=== PATIENT | male | born 1955 | race Caucasian/White ===

== ENCOUNTER 2025-01-10 05:44 | Inpatient (IN) | payer MEDICARE, OTHER, SELFPAY ==
--- NOTE | 2024-12-23 12:39 | CM ---
Demographics: confirmed
Living situation: lives alone, friend and nephew will assist.
Support Person Post Operatively: friend and nephew
History of
VN: no
SNF: no
Outpatient: Encouraged patient to make outpatient appointments at [facility] (formerly [facility]).
Has patient purchased required equipment: walker from [employer]
PCP: active
Pharmacy: [facility]
Post Operative Discharge Plan: Outpatient PT/
--- NOTE | 2024-12-24 15:06 | CM ---
Addendum entered by Mali Grimes RN 12/27/24 14:30:
CM met with patient in PAT. Patient stated he would not have a ride for outpatient PT. CM referred him to [facility] for two week of outpatient therapy.
Original Note:
CM received call from patient requesting SDS due to no ride available post op day 1 and day of discharge. MANNY sent message to Valorie at [facility] to discuss with surgeon.
[2024-12-27 11:44] LABS: Hematocrit 40.2 % (39.0-52.0); Hemoglobin 13.4 g/dL (13.0-18.0); Mean Corp Hgb Conc. 33.3 g/dL (33.0-37.0); Mean Corpuscular Volume 89.3 fL (80.0-94.0); Platelet Count 253 10^3/uL (130-400); Red Cell Dist. Width 12.5 % (11.5-14.5)
[2024-12-27 12:05] LABS: ALT (SGPT) 21 U/L (0-50); AST (SGOT) 19 U/L (17-59); Albumin 4.1 g/dl (3.5-5.0); Alkaline Phosphatase 86 U/L (38-126); Blood Urea Nitrogen 19 mg/dl (9-20); Calcium 9.4 mg/dl (8.4-10.2); Carbon Dioxide 28 mmol/L (22-30); Chloride 105 mmol/L (98-107); Glucose 119 mg/dl (70-99); Potassium 4.5 mmol/L (3.5-5.1); Sodium 136 mmol/L (135-145); Total Protein 6.5 g/dl (6.3-8.2); eGFR > 60.00
[2024-12-27 12:50] LABS: Glycohemoglobin (HgbA1c) 5.8 % (4.0-5.9)
[2024-12-27 14:11] VITALS: BMI 23.8
--- NOTE | 2024-12-27 14:42 | VNURNOTE ---
Addendum entered by Jennifer Bragg RN 01/10/25 13:58:
Home Health Liaison met with patient, nephew and family at bedside to discuss [facility] nurse/therapy, visits, schedule and homebound status. Patient is agreeable and understands that visits at home will be 2-3 x per week to assess and teach medical
management.
Patient is aware that [facility] will contact them for start of care within 1-2 days after discharge from .
[facility] referral accepted in [facility].
Original Note:
Rec'ed update from surg coordinator that pt will need PT/OT post op. Chart reviewed. Per MT pt will be admitted morning of surgery. [facility] referral placed in [facility].
[2024-12-27 18:37] VITALS: BMI 23.8
[2025-01-10] VITALS (17 sets, daily range): BP systolic 100–156; BP diastolic 58–93; PULSE 74–75; O2SAT 96–98; BMI 23.8
[2025-01-10] MEDS: NORMOSOL-R/PLASMALYTE-A 1000 IV (06:36)
[2025-01-10] MEDS: CELEBREX 200 MG PO (06:48)
[2025-01-10] MEDS: TYLENOL 650 MG PO ×3 (06:48→19:45)
--- NOTE | 2025-01-10 09:00 | W.PN.UPDATE ---
Update Note
Progress Note Update
R knee OA s/p R TKA w/ Dr Mittal 01/10/25
DVT prophylaxis - ASA, b/l venous foot pumps
R tibia osteomyelitis, >40 years ago, status post debridement of R tibia and IV Penicillin course - would benefit from prophylactic abx upon d/c
- Probiotic use highly encouraged while on abx
HTN - + parameters - monitor BP
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
Lumbar DDD with radiculopathy - add low dose Gabapentin HS
BPH with nocturia - monitor voids
- Continue Finasteride
- Add Flomax during admission to aid in urination
- Bladder scan/straight cath prn
Venous insufficiency of RLE
Migraines.
Right-sided ischial pain
Eczema
Insomnia
Pt would benefit from home PT/VN services initially upon d/c
[2025-01-10] MEDS: ROXICODONE 5 MG PO (10:30)
[2025-01-10] MEDS: DILAUDID 0.25 MG IV (10:33)
[2025-01-10] MEDS: TYLENOL PO (12:00)
--- NOTE | 2025-01-10 12:00 | PTCARENOTE ---
Pt received from the PACU via bed. Transport was w/o incident. Pt is AAOx3, HRR, lungs are clear, resp. are easy. VSS, Pt is afebrile. Pt's right knee with Mepilex dressing C/D/I, no drainage noted at this time. Pt reports full return of sensation
to b/l legs and is able to move and wiggle toes w/o difficulty. Pt reports pain as a sl discomfort at this time and declines any additional pain meds at present. Pt instructed on plan of care, Pt verbalizes understanding of instructions. Call ramirez
is within reach.
[2025-01-10] MEDS: ANCEF 5 IV ×2 (14:48→21:18)
[2025-01-10] MEDS: FLOMAX 0.4 MG PO (14:48)
[2025-01-10] MEDS: ASPIRIN 325 MG PO (18:45)
[2025-01-10] MEDS: COLACE 100 MG PO (19:44)
[2025-01-10] MEDS: DECADRON 4 MG PO (19:45)
[2025-01-10] MEDS: FLORASTOR 250 MG PO (19:45)
[2025-01-10] MEDS: SENOKOT 17.2 MG PO (19:45)
[2025-01-10] MEDS: BACTROBAN 2% OINTMENT 1 APPLIC NASAL (19:46)
[2025-01-10] MEDS: NEURONTIN 300 MG PO (21:18)
[2025-01-10] MEDS: ROXICODONE 10 MG PO (21:18)
[2025-01-10] MEDS: PROSCAR 5 MG PO (21:19)
[2025-01-10] MEDS: PEPCID 20 MG PO (21:20)
[2025-01-11] VITALS (7 sets, daily range): BP systolic 95–141; BP diastolic 55–77; BMI 23.7
[2025-01-11] MEDS: TYLENOL PO ×2 (01:30→23:56)
[2025-01-11] MEDS: TYLENOL 650 MG PO ×5 (04:15→20:10)
[2025-01-11] MEDS: ROXICODONE 5 MG PO ×2 (05:20→09:49)
[2025-01-11] MEDS: ASPIRIN 325 MG PO (09:47)
[2025-01-11] MEDS: FLORASTOR 250 MG PO ×2 (09:48→20:10)
[2025-01-11] MEDS: DECADRON 4 MG PO ×2 (09:49→20:10)
[2025-01-11] MEDS: SENOKOT 17.2 MG PO ×2 (09:49→20:10)
[2025-01-11] MEDS: COLACE 100 MG PO ×2 (09:49→20:10)
[2025-01-11] MEDS: FLOMAX 0.4 MG PO (09:49)
[2025-01-11] MEDS: BACTROBAN 2% OINTMENT 1 APPLIC NASAL ×2 (09:50→20:10)
--- NOTE | 2025-01-11 11:28 | W.PN.ORTHO ---
Addendum entered and electronically signed by Trent Mittal MD 01/11/25 12:02:
Patient seen and examined. Complains of pain but otherwise doing well. Reassured him that he is doing well. PT felt that he would benefit from another day as an inpatient. Plan for discharge home tomorrow with home VN and PT.
Original Note:
Today's Communication / Plan
-
POD #1 s/p right TKA with Dr. Mittal
-PT/OT as able.
-WBAT with walker.
-Pain control with oxycodone and tylenol prn.
-Aspirin 325 mg po daily for dvt prophylaxis.
-PT has expressed concern with patient's ability to do stairs. Recommend keeping him for additional session of PT tomorrow.
Assessment
.
Distal Motor Intact: Yes
Dressing:
Clean, dry and intact.
Assessment:
POD #1 s/p right TKA with Dr. Mittal
-PT/OT as able.
-WBAT with walker.
-Pain control with oxycodone and tylenol prn.
-Aspirin 325 mg po daily for dvt prophylaxis.
-PT has expressed concern with patient's ability to do stairs. Recommend keeping him for additional session of PT tomorrow.
Plan
.
Surgery / Date: 01/10/25 Right TKA - Dr. Mittal
DVT Prophylaxis: Aspirin
Activity:
Out of bed.
PT/OT
Discharge Plan: Home w/ VN
Subjective
.
.:
Patient was doing PT upon my arrival. Had been reporting pain as he attempted to do steps. Had an episode where the knee gave out, but was able to be redirected to a chair and then subsequently walk back to his chair. There were some concerns
with his ability to be d/c home today due to 5 steps leading to his apartment. Has been taking Oxycodone for pain relief, but continues to have more pain than he was anticipating.
Vital Signs and Labs
.
Vital Signs and Labs:
Lab Results
12/27/24 10:53
12/27/24 10:53
Temp Pulse Resp BP Pulse Ox
97.7 F 61 18 124/75 99
01/11/25 07:35 01/11/25 07:35 01/11/25 07:35 01/11/25 07:35 01/11/25 07:35
Non-invasive Hgb result: 13.3
Physical Exam
-
right knee: dressing is c/d/i. No drainage. ROM 0-80 degrees. Calf soft and non tender to palpation. N/v intact distally. Antalgic gait, using rolling walker to assist ambulation.
[2025-01-11] MEDS: ROXICODONE 10 MG PO ×2 (14:48→21:23)
[2025-01-11] MEDS: PROSCAR 5 MG PO (21:23)
[2025-01-11] MEDS: PEPCID 20 MG PO (21:23)
[2025-01-11] MEDS: NEURONTIN 300 MG PO (21:23)
[2025-01-12] MEDS: TYLENOL 650 MG PO ×2 (03:22→07:56)
[2025-01-12 06:00] VITALS: BMI 23.4
[2025-01-12 07:56] VITALS: BP 129/68
[2025-01-12] MEDS: COLACE 100 MG PO (07:56)
[2025-01-12] MEDS: FLORASTOR 250 MG PO (07:56)
[2025-01-12] MEDS: ASPIRIN 325 MG PO (07:56)
[2025-01-12] MEDS: FLOMAX 0.4 MG PO (07:56)
[2025-01-12] MEDS: ROXICODONE 10 MG PO (07:56)
[2025-01-12] MEDS: SENOKOT 17.2 MG PO (07:56)
[2025-01-12] MEDS: DECADRON 4 MG PO (07:56)
[2025-01-12] MEDS: MILK OF MAGNESIA 30 ML PO (08:02)
[2025-01-12 09:58] VITALS: BP 150/79; PULSE 75; O2SAT 96
--- NOTE | 2025-01-12 11:17 | W.PN.ORTHO ---
Today's Communication / Plan
-
POD #2 s/p right TKA with Dr. Mittal
-PT/OT as able.
-WBAT with walker.
-Pain control with oxycodone and tylenol prn.
-Aspirin 325 mg po daily for dvt prophylaxis.
-PT went much better this morning and patient feels more confident.
-Stable for d/c home today with VN and home PT.
Assessment
.
Distal Motor Intact: Yes
Dressing:
Clean, dry and intact.
Assessment:
POD #2 s/p right TKA with Dr. Mittal
-PT/OT as able.
-WBAT with walker.
-Pain control with oxycodone and tylenol prn.
-Aspirin 325 mg po daily for dvt prophylaxis.
-PT went much better this morning and patient feels more confident.
-Stable for d/c home today with VN and home PT.
Plan
.
Surgery / Date: 01/10/25 Right TKA - Dr. Mittal
DVT Prophylaxis: Aspirin
Activity:
Out of bed.
PT/OT
Discharge Plan: Home w/ VN
Subjective
.
.:
Patient resting comfortably in bed. Did much better on stairs with PT this morning and is confident with being discharged home today.
Vital Signs and Labs
.
Vital Signs and Labs:
Lab Results
12/27/24 10:53
12/27/24 10:53
Temp Pulse Resp BP Pulse Ox
98.2 F 80 16 129/68 98
01/12/25 07:56 01/12/25 07:56 01/12/25 07:56 01/12/25 07:56 01/12/25 10:25
Non-invasive Hgb result: 13.3
Physical Exam
-
Right knee: dressing is c/d/i, no drainage. Moderate diffuse swelling. ROM 0-80 degrees. Calf soft and non tender to palpation. N/v intact distally.
--- NOTE | 2025-01-12 11:22 | W.DS.TRANS ---
DC Summary - Financial Counselor
-
Discharge Instructions:
Sleep Apnea Risk Intermediate
Discharge Diagnosis/Procedures R knee OA s/p R TKA w/ Dr Mittal 01/10/25
Diet Regular
Additional Diets Adequate hydration, minimize opioids, and wear
TEDs stockings to prevent low blood pressure/
dizziness.
Activity As tolerated,With Walker
Driving Restrictions Not until seen by your Dr
Bathing Restrictions OK to Shower
Other Services PT,VN
Wound Care Dressing to be removed 1 week post-surgery.
Bend to be removed at 2 week follow-up with
surgeon's office.
Instructions:
Stand-Alone Forms: Total Hip/Knee Replacement D/C
Changes to Home Medications: No
Discharge Medications:
DC Medications w/original date entered in [employer]
Hair [place] 3 cap PO QPM Supplement 12/25/24
Held on 01/10/25. Instructions: Resume on 01/17/25.
Maxi Hair Plus 4 tab PO DAILY Supplement 12/25/24
Held on 01/10/25. Instructions: Resume on 01/17/25.
finasteride 5 mg tablet 5 mg PO HS Urinary Issue 12/25/24
mupirocin 2 % topical ointment 1 applic intranasal BID #1 tube 12/27/24
cefadroxil 500 mg capsule 500 mg PO DAILY #7 caps 01/06/25
dexamethasone 4 mg tablet 4 mg PO BID Anti-inflammatory #5 tabs 01/06/25
famotidine 20 mg tablet (Pepcid) 20 mg PO HS #30 tabs 01/06/25
gabapentin 300 mg capsule 300 mg PO HS neuropathic pain/sleep #10 caps 01/06/25
ondansetron HCl 4 mg tablet 4 mg PO Q6H PRN nausea and vomiting #30 tabs 01/06/25
oxycodone 5 mg tablet 5 - 10 mg (1 - 2 x 5 mg) PO Q6H PRN moderate-severe pain #30 tabs 01/06/25
Saccharomyces boulardii 250 mg capsule (Florastor) 250 mg PO BID #14 caps 01/10/25
acetaminophen 500 mg tablet (Tylenol Extra Strength) 1,000 mg (2 x 500 mg) PO Q6H #60 tabs 01/10/25
aspirin 325 mg tablet 325 mg PO DAILY #30 tabs 01/10/25
docusate sodium 100 mg capsule 100 mg PO BID #30 caps 01/10/25
lisinopril 10 mg tablet 10 mg PO HS #1 tab 01/10/25
magnesium hydroxide 400 mg/5 mL oral suspension (Milk of Magnesia) 30 ml PO HS PRN constipation #3,780 mL 01/10/25
sennosides 8.6 mg tablet (Ghazala-kristal) 17.2 mg (2 x 8.6 mg) PO BID #30 tabs 01/10/25
Home Medication Changes
Pending Results: No
[2025-01-12 11:43] VITALS: BP 130/68
--- NOTE | 2025-01-12 14:56 | CM ---
SW called up to pt prior to dc to issue IMM.
Pt was previously nervous about dc to home and asked for referrals to SNF. Though after todays session felt more confident and ready for dc.
Pt had transport home with family. VN to follow.
== END 2025-01-12 12:04 | disposition home health service (06) | DRG 470 ==
LOC: 2 SOUTH 05:44
PROVIDERS: ADMITTING PHYSICIAN Orthopaedic Surgery; FAMILY PHYSICIAN Physician Assistant Medical
PROC: 0SRC0J9 Replacement of Right Knee Joint with Synthetic Substitute, Cemented, Open Approach (ICD-10-PCS; 2025-01-10)
DX: M17.11 Unilateral primary osteoarthritis, right knee (principal)
CPT/HCPCS: 36415; 73560; 80053; 83036; 85027; 87070; 93005; 97110; 97116; 97162; 97166; 97530; 97535